=== PATIENT | male | born 1950 | race Caucasian/White ===

== ENCOUNTER 2019-11-27 13:59 | Observation (INO) ==
[~2019-11-27 13:59] MED LIST: Total Joint Mixture (50 ml) INTRAART ONE
[2019-11-27] MEDS ORDERED: Clindamycin 900 MG/50 ML 900 MG/50 ML IV.SOLN IVPB ONE (14:41)
[2019-11-27] MEDS ORDERED: Ringers Solution, Lactated 1,000 ML IVC SCH ×2 (14:45→19:25)
[2019-11-27] MEDS ORDERED: Vancomycin 1,000 MG VIAL ONE (14:57)
[2019-11-27] MEDS ORDERED: Ethanol\\Acetic Acid\\Na Ace\\Ben 1,000 ML IRRIG.SOLN IR ONE (14:57)
[2019-11-27] MEDS ORDERED: *HR* OxyCODONE Immed Rel 5 MG TABLET PO ONE (15:01)
[2019-11-27] MEDS ORDERED: Gabapentin 100 MG CAPSULE PO ONE (15:01)
[2019-11-27] MEDS ORDERED: Celecoxib 200 MG CAPSULE PO ONE (15:01)
[2019-11-27] MEDS ORDERED: Acetaminophen IV 1,000 MG/100 ML INFUS..BTL IVPB ONE (15:01)
[2019-11-27] MEDS ORDERED: ROPIVACAINE/PF/NS 0.25% 1 EACH SYRINGE INTRAART ONE (16:01)
[2019-11-27] MEDS ORDERED: *HR* FentaNYL (PF) 100 MCG/2 ML VIAL ONE ×2 (17:04)
[2019-11-27] MEDS ORDERED: *HR* Propofol 200 MG/20 ML VIAL IVP ONE (17:04)
[2019-11-27] MEDS ORDERED: Ondansetron 4 MG/2 ML VIAL ONE (17:04)
[2019-11-27] MEDS ORDERED: *HR* Midazolam HCl 2 MG/2 ML VIAL ONE (17:04)
[2019-11-27] MEDS ORDERED: Lidocaine -MPF 2% 2 ML VIAL ONE (17:04)
[2019-11-27] MEDS ORDERED: Dexamethasone 4 MG/ML VIAL ONE (17:04)
[2019-11-27] MEDS ORDERED: EPHEDrine 50 MG/ML VIAL ONE (17:28)
[2019-11-27] MEDS ORDERED: *HR* Promethazine 25 MG/ML VIAL IVP PRN ×3 (17:40→19:25)
[2019-11-27] MEDS ORDERED: Ondansetron 4 MG/2 ML VIAL IVP PRN ×3 (17:40→19:25)
[2019-11-27] MEDS ORDERED: *HR* OxyCODONE Immed Rel 5 MG TABLET PO PRN (17:40)
[2019-11-27] MEDS ORDERED: *HR* HYDROmorphone PF 0.5 MG/0.5 ML SYRINGE IVP PRN ×2 (17:40→19:25)
[2019-11-27] MEDS ORDERED: *HR* HYDROmorphone (PF) 1 MG/ML SYRINGE ONE (17:49)
[2019-11-27 18:39] LABS: Hematocrit 46.4 % (37.5-50.1)
[2019-11-27] MEDS ORDERED: MOM Conc 10 ML UD.LIQ PO PRN (19:25)
[2019-11-27] MEDS ORDERED: D5% in Water 1,000 ML IVC PRN (19:25)
[2019-11-27] MEDS ORDERED: *HR* Dextrose 50 % in Water (Vial) 50 ML VIAL IVP PRN (19:25)
[2019-11-27] MEDS ORDERED: Dextrose Gel 15 GM/37.5 ML TUBE PO PRN ×2 (19:25)
[2019-11-27] MEDS ORDERED: Naloxone 0.4 MG/ML INJ IVP PRN (19:25)
[2019-11-27] MEDS ORDERED: Sennosides 8.6 MG TABLET PO PRN (19:25)
[2019-11-27] MEDS: GlipiZIDE 5 MG TABLET PO SCH (20:43)
[2019-11-27] MEDS: Ascorbic Acid 500 MG TABLET PO SCH (20:44)
[2019-11-27] MEDS: Insulin LISPRO 300 UNITS/3 ML VIAL SQ SCH ×2 (20:48)
[2019-11-27] MEDS ORDERED: Clindamycin 900 MG/50 ML 900 MG/50 ML IV.SOLN IVPB SCH (21:00)
[2019-11-27] MEDS: Artificial Tears SOLN 15 ML BOTTLE BOTH EYES SCH ×2 (22:01→22:05)
[2019-11-27] MEDS: Latanoprost 2.5 ML BOTTLE BOTH EYES SCH (22:01)
[2019-11-28] MEDS: Clindamycin 900 MG/50 ML 900 MG/50 ML IV.SOLN IVPB SCH ×2 (00:01→07:32)
[2019-11-28] MEDS: *HR* OxyCODONE Immed Rel 5 MG TABLET PO PRN (00:08)
[2019-11-28 03:04] LABS: Basophils % 0.2 %; Hematocrit 41.6 % (37.5-50.1); Immature Granulocytes % 0.3 % (0-4); Lymphocytes # 0.9 K/mcL (0.6-4.6); Lymphocytes % 7.8 %; Mean Corpuscular HGB Conc 31.7 g/dL (31.6-35.5); Mean Corpuscular Hemoglobin 27.5 pg (28.0-33.3); Mean Corpuscular Volume 86.7 fL (83.0-100.0); Mean Platelet Volume 9.8 fL (9.4-12.4); Monocytes # 0.2 K/mcL (0.0-1.3); Monocytes % 1.7 %; Neutrophils # 10.3 K/mcL (1.6-8.9); Platelet Count 222 K/mcL (140-400); White Blood Count 11.5 K/mcL (4.3-11.1)
[2019-11-28 03:14] LABS: Hemoglobin 13.2 g/dL (12.9-16.9)
[2019-11-28 03:21] LABS: Calcium 8.8 mg/dL (8.6-10.3); Potassium 4.4 mEq/L (3.5-5.1)
[2019-11-28] MEDS: HYDROcodone BIT/Homatropine 5 MG TABLET PO PRN ×4 (05:55→21:53)
[2019-11-28] MEDS: Cholecalciferol (D-3) 1,000 UNIT (25MCG) TABLET PO SCH (07:30)
[2019-11-28] MEDS: Multivit/Ca/Min/Fe/FA 1 TAB TABLET PO SCH (07:31)
[2019-11-28] MEDS: Ascorbic Acid 500 MG TABLET PO SCH ×2 (07:31→17:14)
[2019-11-28] MEDS: Insulin LISPRO 300 UNITS/3 ML VIAL SQ SCH ×4 (07:31→21:03)
[2019-11-28] MEDS: GlipiZIDE 5 MG TABLET PO SCH ×2 (07:31→17:14)
[2019-11-28] MEDS: Artificial Tears SOLN 15 ML BOTTLE BOTH EYES SCH ×4 (07:35→21:04)
[2019-11-28] MEDS: hydroCHLOROthiazide 25 MG TABLET PO SCH (11:56)
[2019-11-28] MEDS: Aspirin Enteric Coated 81 MG Tablet PO SCH (12:48)
[2019-11-28] MEDS: Latanoprost 2.5 ML BOTTLE BOTH EYES SCH (21:03)
[2019-11-29] MEDS: *HR* OxyCODONE Immed Rel 5 MG TABLET PO PRN ×3 (01:52→23:46)
[2019-11-29 05:31] LABS: Basophils # 0.1 K/mcL (0.0-0.2); Basophils % 0.5 %; Eosinophils # 0.2 K/mcL (0.0-0.6); Eosinophils % 1.6 %; Hematocrit 36.3 % (37.5-50.1); Immature Granulocytes % 0.3 % (0-4); Lymphocytes # 2.5 K/mcL (0.6-4.6); Lymphocytes % 26.2 %; Mean Corpuscular HGB Conc 33.1 g/dL (31.6-35.5); Mean Corpuscular Hemoglobin 28.7 pg (28.0-33.3); Mean Corpuscular Volume 86.8 fL (83.0-100.0); Mean Platelet Volume 9.5 fL (9.4-12.4); Monocytes % 10.6 %; Neutrophils # 5.8 K/mcL (1.6-8.9); Platelet Count 175 K/mcL (140-400); Red Blood Count 4.18 M/mcL (4.19-5.50); Red Cell Distribution Width 14.1 % (11.5-14.5); Segmented Neutrophils % 60.8 %; White Blood Count 9.5 K/mcL (4.3-11.1)
[2019-11-29 05:51] LABS: Calcium 8.8 mg/dL (8.6-10.3)
[2019-11-29] MEDS: Insulin LISPRO 300 UNITS/3 ML VIAL SQ SCH ×4 (07:53→23:17)
[2019-11-29] MEDS: Multivit/Ca/Min/Fe/FA 1 TAB TABLET PO SCH (08:49)
[2019-11-29] MEDS: Cholecalciferol (D-3) 1,000 UNIT (25MCG) TABLET PO SCH (08:49)
[2019-11-29] MEDS: Ascorbic Acid 500 MG TABLET PO SCH ×2 (08:49→16:26)
[2019-11-29] MEDS: Artificial Tears SOLN 15 ML BOTTLE BOTH EYES SCH ×4 (08:49→20:08)
[2019-11-29] MEDS: hydroCHLOROthiazide 25 MG TABLET PO SCH (08:49)
[2019-11-29] MEDS: Aspirin Enteric Coated 81 MG Tablet PO SCH (08:49)
[2019-11-29] MEDS: GlipiZIDE 5 MG TABLET PO SCH ×2 (08:50→16:26)
[2019-11-29] MEDS ORDERED: 0.9 % Sodium Chloride 1,000 ML IVC ONE (09:13)
[2019-11-29] MEDS ORDERED: 0.9 % Sodium Chloride 1,000 ML IVC SCH (09:15)
[2019-11-29] MEDS: HYDROcodone BIT/Homatropine 5 MG TABLET PO PRN ×2 (11:59→16:32)
[2019-11-29] MEDS: Latanoprost 2.5 ML BOTTLE BOTH EYES SCH (20:08)
[2019-11-30] MEDS: HYDROcodone BIT/Homatropine 5 MG TABLET PO PRN (02:02)
[2019-11-30] MEDS: GlipiZIDE 5 MG TABLET PO SCH ×2 (08:47→16:03)
[2019-11-30] MEDS: Cholecalciferol (D-3) 1,000 UNIT (25MCG) TABLET PO SCH (08:48)
[2019-11-30] MEDS: *HR* OxyCODONE Immed Rel 5 MG TABLET PO PRN ×3 (08:48→23:08)
[2019-11-30] MEDS: Multivit/Ca/Min/Fe/FA 1 TAB TABLET PO SCH (08:48)
[2019-11-30] MEDS: hydroCHLOROthiazide 25 MG TABLET PO SCH (08:48)
[2019-11-30] MEDS: Aspirin Enteric Coated 81 MG Tablet PO SCH (08:48)
[2019-11-30] MEDS: Ascorbic Acid 500 MG TABLET PO SCH ×2 (08:49→16:04)
[2019-11-30] MEDS: Artificial Tears SOLN 15 ML BOTTLE BOTH EYES SCH ×4 (09:05→23:11)
[2019-11-30] MEDS: Insulin LISPRO 300 UNITS/3 ML VIAL SQ SCH ×4 (09:06→21:03)
[2019-11-30] MEDS: Latanoprost 2.5 ML BOTTLE BOTH EYES SCH (21:03)
[2019-12-01 05:59] LABS: Basophils # 0.1 K/mcL (0.0-0.2); Basophils % 0.8 %; Eosinophils # 0.4 K/mcL (0.0-0.6); Eosinophils % 3.8 %; Hematocrit 36.8 % (37.5-50.1); Hemoglobin 11.8 g/dL (12.9-16.9); Immature Granulocytes % 0.5 % (0-4); Lymphocytes # 2.7 K/mcL (0.6-4.6); Lymphocytes % 28.9 %; Mean Corpuscular HGB Conc 32.1 g/dL (31.6-35.5); Mean Corpuscular Hemoglobin 27.8 pg (28.0-33.3); Mean Corpuscular Volume 86.8 fL (83.0-100.0); Mean Platelet Volume 10.1 fL (9.4-12.4); Monocytes % 11.1 %; Neutrophils # 5.1 K/mcL (1.6-8.9); Platelet Count 211 K/mcL (140-400); Red Blood Count 4.24 M/mcL (4.19-5.50); Red Cell Distribution Width 14.5 % (11.5-14.5); Segmented Neutrophils % 54.9 %; White Blood Count 9.2 K/mcL (4.3-11.1)
[2019-12-01 06:21] LABS: BUN/Creatinine Ratio 20 (6-26); Blood Urea Nitrogen 24 mg/dL (8-23); Carbon Dioxide 27 mEq/L (23-29); Chloride 99 mEq/L (98-107); Glucose 112 mg/dL (70-105); Osmolality,Calculated 285 (280-300); Potassium 3.8 mEq/L (3.5-5.1); Sodium 135 mEq/L (136-145); eGFR For African Americans > 60 (> 60); eGFR For Non-African Americans 59 (> 60)
[2019-12-01] MEDS: hydroCHLOROthiazide 25 MG TABLET PO SCH (08:27)
[2019-12-01] MEDS: Aspirin Enteric Coated 81 MG Tablet PO SCH (08:28)
[2019-12-01] MEDS: GlipiZIDE 5 MG TABLET PO SCH ×2 (08:28→16:19)
[2019-12-01] MEDS: HYDROcodone BIT/Homatropine 5 MG TABLET PO PRN (08:29)
[2019-12-01] MEDS: Cholecalciferol (D-3) 1,000 UNIT (25MCG) TABLET PO SCH (08:29)
[2019-12-01] MEDS: Multivit/Ca/Min/Fe/FA 1 TAB TABLET PO SCH (08:29)
[2019-12-01] MEDS: Ascorbic Acid 500 MG TABLET PO SCH ×2 (08:29→16:19)
[2019-12-01] MEDS: Artificial Tears SOLN 15 ML BOTTLE BOTH EYES SCH ×3 (08:33→16:21)
[2019-12-01] MEDS: Insulin LISPRO 300 UNITS/3 ML VIAL SQ SCH ×2 (10:50→12:54)
[2019-12-01 15:15] VITALS: BP 120/79
== END 2019-12-01 18:21 | disposition home or self-care (01) ==
LOC: SAMDAY 13:59 → 3NENU 13:59
PROVIDERS: ADMIT Orthopaedic Surgery; ATTEND Orthopaedic Surgery